=== PATIENT | female | born 1950 | race African-American/Black ===

== ENCOUNTER 2021-08-03 21:00 | Inpatient (IN) | payer MEDICARE ==
[~2021-08-03] VITALS: Ht 160 cm; Wt 115.8 kg
[2021-08-03] MEDS ORDERED: MAGNESIUM/ALUMINUM HYDROXIDE/SIMETHICONE 30ML UDC PO STA (22:20)
[2021-08-03] MEDS ORDERED: METOCLOPRAMIDE HCL 10MG/2ML VIAL IV STA (22:20)
[2021-08-03] MEDS ORDERED: VISCOUS LIDOCAINE 2% 15 ML UDC PO STA (22:20)
[2021-08-03] MEDS ORDERED: KETOROLAC 30MG/ML VIAL IV STA (22:20)
[2021-08-03] MEDS ORDERED: PANTOPRAZOLE SODIUM 40 MG/VIAL IV STA (22:20)
[2021-08-03 23:10] LABS: CHLORIDE 106 mEq/L (98-107)
[2021-08-03 23:22] LABS: BASOPHILS % 0.2 % (0.0-2.0); EOSINOPHILS % 2.4 % (0.0-5.0); HEMATOCRIT. 35.6 % (36.0-48.0); HEMOGLOBIN. 11.7 g/dL (12.0-16.0); LYMPHOCYTES % 10.6 % (20.0-50.0); MEAN CORPUSCULAR HEMOGLOBIN 26.4 pg (28.0-32.0); MEAN CORPUSCULAR VOLUME 80.5 fL (81.0-99.0); MEAN PLATELET VOLUME 8.9 fl (7.4-10.4); MONOCYTES % 4.1 % (2.0-8.0); NEUTROPHILS % 82.7 % (40.0-76.0); PLATELET 274 x1000/uL (130-400); RED BLOOD CELL COUNT 4.42 mill/uL (4.2-5.4); RED CELL DISTRIBUTION WIDTH 15.4 % (11.6-14.6)
[2021-08-04] MEDS ORDERED: SODIUM CHLORIDE 0.9% 1,000 ML IV NR
[2021-08-04 00:01] LABS: CLARITY URINE CLEAR (CLEAR); COLOR URINE YELLOW (YELLOW); KETONES URINE NEGATIVE (NEGATIVE); LEUKOCYTE ESTERASE URINE NEGATIVE (NEGATIVE); NITRITE URINE NEGATIVE (NEGATIVE); OCCULT BLOOD URINE NEGATIVE (NEGATIVE); PH URINE 5.5 (4.5-8.0); PROTEIN URINE NEGATIVE (NEGATIVE); SPECIFIC GRAVITY URINE 1.011 (1.005-1.030); UROBILINOGEN URINE 0.2 E.U./dL (0.2-1.0)
[2021-08-04] MEDS ORDERED: SODIUM CHLORIDE 0.9% 1,000 ML IV ONE (08:30)
[2021-08-04 10:28] LABS: BASOPHILS % 0.4 % (0.0-2.0); EOSINOPHILS % 3.4 % (0.0-5.0); HEMATOCRIT. 33.9 % (36.0-48.0); HEMOGLOBIN. 10.9 g/dL (12.0-16.0); LYMPHOCYTES % 22.1 % (20.0-50.0); MEAN CORPUSCULAR HEMOGLOBIN 26.3 pg (28.0-32.0); MEAN CORPUSCULAR VOLUME 81.5 fL (81.0-99.0); MEAN PLATELET VOLUME 8.6 fl (7.4-10.4); MONOCYTES % 6.8 % (2.0-8.0); NEUTROPHILS % 67.3 % (40.0-76.0); PLATELET 259 x1000/uL (130-400); RED BLOOD CELL COUNT 4.16 mill/uL (4.2-5.4); RED CELL DISTRIBUTION WIDTH 15.4 % (11.6-14.6)
[2021-08-04 10:32] LABS: CHLORIDE 109 mEq/L (98-107)
[2021-08-04 10:39] LABS: PHOSPHORUS 2.4 mg/dL (2.5-4.9)
[2021-08-04] MEDS ORDERED: PANT40TA51 MT (10:51)
[2021-08-04] MEDS ORDERED: LISI40TA13 MT (10:51)
[2021-08-04] MEDS ORDERED: HYDR25TA MT (10:51)
[2021-08-04] MEDS ORDERED: ALLO300T2 MT (10:51)
[2021-08-04] MEDS ORDERED: CARV12.545 MT (10:51)
[2021-08-04] MEDS ORDERED: ASPI-1079 PO (10:51)
[2021-08-04] MEDS ORDERED: PRAV20TA57 MT (10:51)
[2021-08-04] MEDS ORDERED: ONDA4TAB11 PO (10:51)
[2021-08-04 11:00] VITALS: BP 171/72
[2021-08-04 11:30] VITALS: BP 172/72
[2021-08-04] MEDS: CARVEDILOL 12.5MG TABLET PO SCH ×2 (11:52→17:19)
[2021-08-04 12:00] VITALS: BP 137/67
[2021-08-04 16:00] VITALS: BP 123/54
[2021-08-04] MEDS ORDERED: *PATIENT'S OWN MEDICATION STORAGE XX SCH (16:15)
[2021-08-04] MEDS ORDERED: AMLO5TAB88 MT (16:16)
[2021-08-04 16:41] VITALS: BP 123/54
[2021-08-04] MEDS ORDERED: CARVEDILOL 12.5MG TABLET PO SCH (17:00)
[2021-08-04] MEDS ORDERED: ATORVASTATIN CALCIUM 20MG TABLET PO SCH (21:00)
[2021-08-05] MEDS ORDERED: ALLOPURINOL 300 MG TABLET PO SCH (09:00)
== END 2021-08-04 20:30 | disposition home or self-care (01) | DRG 683 ==
LOC: ER 21:00 → 7WST 08-04 01:45 → EDBEDREQ 08-04 01:56
PROVIDERS: ADMIT Internal Medicine; ATTEND Internal Medicine
DX: N17.9 Acute kidney failure, unspecified (principal); Z68.42 Body mass index [BMI] 45.0-49.9, adult; I12.9 Hypertensive chronic kidney disease with stage 1 through stage 4 chronic kidney disease, or unspecified chronic kidney disease; E11.22 Type 2 diabetes mellitus with diabetic chronic kidney disease; N18.9 Chronic kidney disease, unspecified; M10.9 Gout, unspecified; E78.5 Hyperlipidemia, unspecified; D64.9 Anemia, unspecified; E66.01 Morbid (severe) obesity due to excess calories; D72.829 Elevated white blood cell count, unspecified; Z83.3 Family history of diabetes mellitus; Z90.710 Acquired absence of both cervix and uterus; Z82.49 Family history of ischemic heart disease and other diseases of the circulatory system; Z79.899 Other long term (current) drug therapy
CPT/HCPCS: 36415; 76700; 80053; 80069; 81003; 83880; 84484; 85025; 93005; 99285; C9113; J1885; J2765